=== PATIENT | female | born 1945 | race Caucasian/White ===

== ENCOUNTER 2019-05-30 06:07 | Inpatient (IN) ==
[2019-05-30] MEDS ORDERED: *HR* HYDROcodone/Acet 5/325 mg TABLET PO ONE ×2 (06:23→08:56)
[2019-05-30] MEDS ORDERED: *HR* LORazepam 1 MG TABLET PO ONE (06:25)
[2019-05-30 07:04] LABS: Basophils % 0.2 %; Eosinophils % 0.4 %; Hematocrit 37.4 % (35.3-44.9); Hemoglobin 12.5 g/dL (11.5-15.4); Immature Granulocytes % 0.2 % (0-4); Lymphocytes # 1.3 K/mcL (0.6-4.6); Lymphocytes % 14.3 %; Mean Corpuscular HGB Conc 33.4 g/dL (31.6-35.5); Mean Corpuscular Hemoglobin 30.9 pg (28.0-33.3); Mean Corpuscular Volume 92.6 fL (83.0-100.0); Mean Platelet Volume 13.1 fL (9.4-12.4); Monocytes # 0.8 K/mcL (0.0-1.3); Monocytes % 8.6 %; Platelet Count 192 K/mcL (140-400); Red Blood Count 4.04 M/mcL (3.82-4.97); Red Cell Distribution Width 13.1 % (11.5-14.5); Segmented Neutrophils % 76.3 %; White Blood Count 9.1 K/mcL (4.3-11.1)
[2019-05-30 07:06] LABS: INR 1.1; Prothrombin Time 12.5 Seconds (9.4-12.1)
[2019-05-30 07:08] LABS: Activated Partial Thrombo Time 29.9 Seconds (26.0-36.0)
[2019-05-30 07:17] LABS: BUN/Creatinine Ratio 25 (6-26); Blood Urea Nitrogen 24 mg/dL (8-23); Calcium 9.1 mg/dL (8.6-10.3); Carbon Dioxide 21 mEq/L (23-29); Chloride 106 mEq/L (98-107); Glucose 216 mg/dL (70-105); Osmolality,Calculated 303 (280-300); Potassium 4.5 mEq/L (3.5-5.1); Sodium 141 mEq/L (136-145); eGFR For African Americans > 60 (> 60); eGFR For Non-African Americans 57 (> 60)
[2019-05-30 08:27] LABS: C-Reactive Protein 11 mg/L (Less than 10)
[2019-05-30 10:04] LABS: Bilirubin,Urine Negative (Negative); Blood,Urine Negative (Negative); Clarity,Urine Cloudy (Clear); Color,Urine Yellow (Yellow); Glucose,Urine (UA) Normal (Normal); Ketones,Urine Negative (Negative); Leukocyte Esterase,Urine Small (Negative); Nitrite,Urine Positive (Negative); Protein,Urine Negative (Neg-Trace); Specific Gravity,Urine 1.022 (1.010-1.025); Urobilinogen,Urine Normal (Normal)
[2019-05-30 10:14] LABS: Bacteria,Urine Many per hpf (None-Few); Hyaline Casts,Urine None Seen per lpf (None-Few); Squamous Epithelial Cell,Urine Many per lpf (None-Few)
[2019-05-30] MEDS ORDERED: Naloxone 0.4 MG/ML INJ IVP PRN (11:10)
[2019-05-30] MEDS ORDERED: Ketorolac 15 MG/ML VIAL IVP PRN (11:10)
[2019-05-30] MEDS ORDERED: *HR* HYDROcodone/Acet 10/325 mg TABLET PO PRN (11:14)
[2019-05-30] MEDS ORDERED: D5% in Water 1,000 ML IVC PRN (12:05)
[2019-05-30] MEDS ORDERED: Dextrose Gel 15 GM/37.5 ML TUBE PO PRN ×2 (12:05)
[2019-05-30] MEDS ORDERED: *HR* Dextrose 50 % in Water (Syg) 50 ML SYRINGE IVP PRN (12:05)
[2019-05-30] MEDS ORDERED: Gabapentin 300 MG CAPSULE PO SCH (15:00)
[2019-05-30] MEDS: Insulin LISPRO 300 UNITS/3 ML VIAL SQ SCH ×2 (17:46→20:24)
[2019-05-30] MEDS: Pregabalin 25 MG CAPSULE PO SCH (20:26)
[2019-05-30] MEDS: *HR* HYDROcodone/Acet 5/325 mg TABLET PO PRN (22:46)
[2019-05-31] MEDS: *HR* Heparin 5,000 UNIT/ML VIAL SQ SCH ×2 (05:53→16:36)
[2019-05-31 06:08] LABS: BUN/Creatinine Ratio 20 (6-26); Blood Urea Nitrogen 18 mg/dL (8-23); Calcium 8.9 mg/dL (8.6-10.3); Carbon Dioxide 24 mEq/L (23-29); Chloride 108 mEq/L (98-107); Glucose 167 mg/dL (70-105); Osmolality,Calculated 298 (280-300); Potassium 5.3 mEq/L (3.5-5.1); Sodium 141 mEq/L (136-145); eGFR For African Americans > 60 (> 60); eGFR For Non-African Americans > 60 (> 60)
[2019-05-31 06:16] LABS: Basophils % 0.3 %; Eosinophils # 0.1 K/mcL (0.0-0.6); Eosinophils % 1.3 %; Hematocrit 36.7 % (35.3-44.9); Immature Granulocytes % 0.2 % (0-4); Lymphocytes # 1.5 K/mcL (0.6-4.6); Lymphocytes % 23.8 %; Mean Corpuscular HGB Conc 32.7 g/dL (31.6-35.5); Mean Corpuscular Hemoglobin 30.7 pg (28.0-33.3); Mean Corpuscular Volume 93.9 fL (83.0-100.0); Mean Platelet Volume 12.5 fL (9.4-12.4); Monocytes # 0.6 K/mcL (0.0-1.3); Monocytes % 10.2 %; Platelet Count 161 K/mcL (140-400); Red Blood Count 3.91 M/mcL (3.82-4.97); Red Cell Distribution Width 13.2 % (11.5-14.5); Segmented Neutrophils % 64.2 %; White Blood Count 6.3 K/mcL (4.3-11.1)
[2019-05-31] MEDS: Pregabalin 25 MG CAPSULE PO SCH ×2 (08:47→20:02)
[2019-05-31] MEDS: Insulin LISPRO 300 UNITS/3 ML VIAL SQ SCH ×4 (08:48→21:05)
[2019-05-31] MEDS: *HR* HYDROcodone/Acet 5/325 mg TABLET PO PRN (11:15)
[2019-05-31] MEDS: predniSONE 20 MG TABLET PO SCH (16:36)
[2019-06-01] MEDS: *HR* Heparin 5,000 UNIT/ML VIAL SQ SCH (05:44)
[2019-06-01] MEDS: Pregabalin 25 MG CAPSULE PO SCH (08:27)
[2019-06-01] MEDS: Insulin LISPRO 300 UNITS/3 ML VIAL SQ SCH (08:27)
[2019-06-01] MEDS: predniSONE 20 MG TABLET PO SCH (08:27)
[2019-06-01] MEDS ORDERED: FLUoxetine 20 MG CAPSULE PO SCH (09:00)
[2019-06-01 12:13] VITALS: BP 136/80
== END 2019-06-01 13:26 | disposition home health service (06) | DRG 552 ==
LOC: 3NENU 06:07 → EMEROOARM 06:07 → SUATTDRO 11:03 → 3NENU 12:36
PROVIDERS: ADMIT Internal Medicine; ATTEND Internal Medicine